=== PATIENT | female | born 1970 | race Caucasian/White ===

== ENCOUNTER 2020-10-03 11:44 | Emergency (ER) | payer OTHER ==
[~2020-10-03] VITALS: Ht 157.5 cm; Wt 79.4 kg
[2020-10-03] MEDS ORDERED: ATACAND32 MG (12:12)
[2020-10-03] MEDS ORDERED: PREVACID15 MG (12:12)
== END 2020-10-03 18:10 | disposition home or self-care (01) ==
LOC: ER 11:44
DX: M25.551 Pain in right hip (principal); M54.5 Low back pain